=== PATIENT | male | born 1975 | race Caucasian/White ===

== ENCOUNTER 2017-08-30 17:16 | Emergency (ER) | payer OTHER ==
[~2017-08-30] VITALS: Ht 193 cm; Wt 129.3 kg
== END 2017-08-30 17:32 | disposition home or self-care (01) ==
LOC: ED 17:16
DX: H92.02 Otalgia, left ear (principal); R42 Dizziness and giddiness; M79.641 Pain in right hand; X58.XXXA Exposure to other specified factors, initial encounter

== ENCOUNTER 2022-10-21 16:38 | Emergency (ER) | payer OTHER ==
[~2022-10-21] VITALS: Ht 193 cm; Wt 131.9 kg
[2022-10-21] MEDS ORDERED: FLOMAX0.4 MG PO (18:53)
== END 2022-10-21 19:14 | disposition home or self-care (01) ==
LOC: ED 16:38
DX: N40.1 Benign prostatic hyperplasia with lower urinary tract symptoms (principal); R39.11 Hesitancy of micturition; R39.15 Urgency of urination; F17.200 Nicotine dependence, unspecified, uncomplicated
CPT/HCPCS: 51798; 81003; 87491; 99283-25